=== PATIENT | female | born 1985 | race Caucasian/White ===

== ENCOUNTER 2018-10-18 15:42 | Emergency (ER) | payer OTHER ==
[~2018-10-18] VITALS: Ht 185.4 cm; Wt 81.8 kg
[~2018-10-18 15:42] MED LIST: ALBU6.7H INH
[2018-10-18 16:17] VITALS: BP 155/95
[2018-10-18] MEDS ORDERED: AMOX-422 PO (16:55)
== END 2018-10-18 17:21 | disposition home or self-care (01) ==
LOC: ER 15:42
DX: K04.7 Periapical abscess without sinus (principal); Z79.899 Other long term (current) drug therapy
CPT/HCPCS: 64400; 99284